=== PATIENT | female | born 1985 | race Caucasian/White ===

== ENCOUNTER 2021-11-10 10:15 | Day surgery (SDC) | payer BC ==
[~2021-11-10] VITALS: Ht 170.2 cm; Wt 135.7 kg
[2021-11-10 11:20] VITALS: BP 147/32; PULSE 81; TEMP 97.9
[2021-11-10] MEDS ORDERED: NORCO 325 MG-51 TAB PO (13:00)
[2021-11-10 17:20] VITALS: BP 144/74; PULSE 87; TEMP 97.8
--- NOTE | 2021-11-10 17:20 | NUR ---
Patient arrived back into [facility] from [facility]. Report recieved from DHRUV John. Patient awakens to vocal stimuli. at bedside. ABD binder in place.
[2021-11-10 17:35] VITALS: BP 138/78; PULSE 77
--- NOTE | 2021-11-10 17:35 | NUR ---
Patient alert and talking. at bedside. Vital signs stable. Complain of pain. Patient states she is scared to move due to the pain. Educated patient on needing to move to prevent post op complications.
--- NOTE | 2021-11-10 17:36 | NUR ---
Patient eating blueberry muffin and jello with sprite to drink. Tolerating food and drink well. No complaint of nausea.
[2021-11-10 17:50] VITALS: BP 124/74; PULSE 87
--- NOTE | 2021-11-10 17:50 | NUR ---
Patient requesting to use restroom. Patient ambulated to restroom with stand by assistance. Patient able to void successfully.
--- NOTE | 2021-11-10 18:10 | NUR ---
Patient able to void successfully. Met discharge criteria. Patient to get dressed with assistance from .
--- NOTE | 2021-11-10 18:35 | NUR ---
Patient needing a minute since she got a little light headed.
--- NOTE | 2021-11-10 18:45 | NUR ---
Patient dressed and ready to go. Pain under control. Went through discharge instructions with patient and . Questions answered. Verbalized understanding to discharge instructions. Patient escorted out by DHRUV Moura and left in the care of her .
--- NOTE | 2021-11-10 19:58 | NUR ---
This RN received a call from patient's , Wayne. [facility] was closed when he went to [facility]. Dora in Pharmacy spoke with who ordered home pack of [place]. Home pack #[id number] handed to patient's with instructions.
== END 2021-11-10 18:50 | disposition home or self-care (01) ==
LOC: SDCO 10:15
DX: K43.2 Incisional hernia without obstruction or gangrene (principal); K42.0 Umbilical hernia with obstruction, without gangrene; E66.9 Obesity, unspecified; Z87.891 Personal history of nicotine dependence
CPT/HCPCS: C1781; J0330; J1100; J1170; J1885; J2175; J2250; J2405; J2704; J3010; J7120

== ENCOUNTER 2022-09-18 11:17 | Day surgery (SDC) | payer BC ==
[~2022-09-18] VITALS: Ht 170.2 cm; Wt 140.9 kg
[~2022-09-18 11:17] MED LIST: NORCO 325 MG-51 TAB PO
[2022-09-18 13:16] VITALS: BP 145/94; PULSE 84; TEMP 97.9
[2022-09-18] MEDS ORDERED: MOTRIN 600600 MG/TAB PO (13:24)
[2022-09-18] MEDS ORDERED: NORCO 325 MG-51 TAB PO (13:24)
[2022-09-18 17:11] VITALS: BP 139/82; PULSE 96
[2022-09-18 17:25] VITALS: BP 136/80; PULSE 93
[2022-09-18 17:40] VITALS: BP 131/81; PULSE 96
[2022-09-18 17:57] VITALS: TEMP 97.8
[2022-09-18 18:10] VITALS: BP 132/83; PULSE 93
--- NOTE | 2022-09-18 18:13 | NUR ---
1705 ASSUMED CARE OF PT FROM DHRUV VENEGAS. PT LYING IN GURNEY, VSS ON RA. TOLERATING WATER, AT BEDSIDE. THIS RN RECOVERED PT IN PACU WELL AND AWARE OF HX. BEDSIDE REPORT FROM DHRUV VENEGAS. 1710 PT AMBULATED WITH STANDBY ASSIST TO BR, VOIDED. ENCOURAGED PO - ACCEPTING OF TOAST AND APPLESAUCE. 1717 NOW REPORTING GEN ABDOMINAL PAIN OF 6/10 - GIVEN FENTANYL 25MCG IVP, RESULTING IN DECREASE IN PAIN TO 4/10 AND TOLERABLE. DENIES OTHER COMPLAINT. 1755 PT HAS TOLERATED ALL PO (ABOVE) WITHOUT COMPLAINT. PIV D/C'D AND PT GETTING DRESSED. VS HAVE BEEN STABLE ON RA. AT BEDSIDE WILL DRIVE HER HOME. 1820 D/C INSTRUCTIONS REVIEWED AND HANDED TO PT. WARM BLANKETS TO ABDOMEN REFRESHED AND EFFECTIVE AT REDUCING GAS PAIN. ALL BELONGINGS IN HAND - PT TAKEN TO ER EXIT IN W/C. REMAINS A&O, NAD, PAIN TOLERABLE.
== END 2022-09-18 18:30 | disposition home or self-care (01) ==
LOC: SDCO 11:17
DX: K80.10 Calculus of gallbladder with chronic cholecystitis without obstruction (principal); K66.0 Peritoneal adhesions (postprocedural) (postinfection); Z87.891 Personal history of nicotine dependence
CPT/HCPCS: J0360; J0690; J1100; J1885; J2405; J2704; J3010; J7120; Q9966